=== PATIENT | female | born 2000 | race Caucasian/White ===

== ENCOUNTER 2024-04-07 15:37 | Emergency (ER) | payer BC, SELFPAY ==
[2024-04-07 15:44] VITALS: BP 122/80; PULSE 98; RESP 20; TEMP 36.6; O2SAT 97
--- NOTE | 2024-04-07 15:51 | ED.URI ---
HPI - URI/Sore Throat General Chief Complaint: Upper Respiratory Infection Stated Complaint: Cough Source: patient Mode of arrival: ambulatory Limitations: no limitations History of Present Illness HPI Narrative: 24-year-old female presented for complaint of cough for 8 days. States the cough is worse at night and is keeping her up. Cough is unrelieved with [id number] cough medicine. Denies shortness of breath, wheezing, nausea vomiting, fever lethargy. Related Data Home Medications Medication Instructions Recorded Confirmed norethindrone 1 mg-ethinyl 1 tablet PO DAILY 04/07/24 04/07/24 estradiol 10 mcg (24)-iron 10 mcg(2) tablet (Lo Loestrin Fe) Allergies Allergy/AdvReac Type Severity Reaction Status Date / Time No Known Allergies Allergy Verified 04/07/24 15:45 Review of Systems Review of Systems: CONSTITUTIONAL: Denies body aches, fever, chills, or sweats. EYES: Denies visual changes, redness, or discharge. ENT: Denies rhinorrhea, congestion, sore throat, or otalgia. CARDIOVASCULAR: Denies chest pain, palpitations, or edema. RESPIRATORY: Reports cough, denies sob, wheezing. GASTROINTESTINAL: Denies abdominal pain, nausea, vomiting, or diarrhea. SKIN: Denies rash, itching, or wounds. MUSCULOSKELETAL: Denies back pain, joint pain, or myalgia. NEUROLOGIC: Denies headache All systems reviewed & are unremarkable except as noted in HPI and below PMFSH Comments At time of signature, I have reviewed and agree with nursing past medical, surgical, social and family history unless otherwise noted. Please see nursing chart for further information. There is no relevant family history pertinent to the presenting complaint Exam Narrative: GENERAL: Well-appearing, in no acute distress. EYES: EOMI. No redness or drainage. Conjunctivae normal. ENT: Mucous membranes pink and moist. No rhinorrhea. TMs normal bilaterally. Throat normal. Uvula midline. NECK: Normal AROM. Supple. CHEST: No respiratory distress. lungs clear to all kay. HEART: Regular rate and rhythm. No murmur appreciated. ABDOMEN: Soft, nontender, nondistended, normal active bowel sounds. SKIN: Warm, dry, no rash. Capillary refill normal. Normal skin turgor. NEURO: Alert and oriented x3. Gait steady. PSYCH: Normal affect. Course Course Emergency Course: Patient is aware of diagnosis, understands and agrees to treatment plan. Anticipatory guidance given. Patient agrees to follow-up as directed and is aware of reasons to seek care at the emergency department. Portions of this record may have been created with voice recognition software Level of Care: Express Care Visit Vital Signs Vital signs: Vital Signs Temperature 97.8 F 04/07/24 15:44 Pulse Rate 98 04/07/24 15:44 Respiratory Rate 20 04/07/24 15:44 Blood Pressure 122/80 04/07/24 15:44 Pulse Oximetry 97 04/07/24 15:44 Oxygen Delivery Room Air 04/07/24 15:44 Temperature 97.8 F 04/07/24 15:44 Pulse Rate 98 04/07/24 15:44 Respiratory Rate 20 04/07/24 15:44 Blood Pressure 122/80 04/07/24 15:44 Pulse Oximetry 97 04/07/24 15:44 Oxygen Delivery Room Air 04/07/24 15:44 MDM - URI/Sore Throat MDM Narrative Medical decision making narrative: Discussed physical exam findings. Advised supportive measures and signs/symptoms to go to the ER. Pt is appropriate for outpt treatment and f/u. Differential Diagnosis Differential diagnosis: Likely upper respiratory infection, sinusitis, viral infection, bronchitis and other Discharge Plan Discharge Clinical Impression: Bronchitis Patient Disposition: Home, Self-Care Condition: Stable Instructions: Antibiotic Form, Acute Bronchitis (ED) Additional Instructions: Take medication as directed Recommend Flonase spray and Zyrtec (or Claritin/Olivia) If you have sinus congestion over the counter Cough syrup may cause drowsiness; avoid driving or take it at night ti
[2024-04-07 15:54] VITALS: BP 122/80; PULSE 98; RESP 20; TEMP 36.6; O2SAT 97
== END 2024-04-07 16:00 | disposition home or self-care (01) ==
PROVIDERS: Emergency Provider Nurse Practitioner Family
DX: J40 Bronchitis, not specified as acute or chronic (principal)
CPT/HCPCS: 99213; G0463

== ENCOUNTER 2024-11-18 16:29 | Emergency (ER) | payer OTHER, SELFPAY ==
--- NOTE | ~2024-11-18 | XR_ITS ---
EXAMINATION: XR tibia fibula LT 2V DATE: 11/18/2024 16:54 INDICATION: Left lower leg injury TECHNIQUE: Anteroposterior and lateral views of the left tibia and fibula were obtained on overlappin g proximal and distal images. COMPARISON: None. FINDINGS: Bone alignment is normal. No fracture. Joint space at the left knee, ankle and visualized mid and hin dfoot are normal. No left knee or ankle joint effusion. Mild soft tissue swelling anterior to the dis andrew lower leg and ankle. IMPRESSION: 1. No osseous abnormality. Reviewed, dictated and finalized at location A. IMPRESSION: 1. No osseous abnormality.
[2024-11-18 16:36] VITALS: BP 120/75; PULSE 106; RESP 18; TEMP 36.7; O2SAT 97
--- NOTE | 2024-11-18 17:17 | ED.LOWEXIN ---
HPI - Extremity Injury (Lower) General Chief Complaint: Extremity Injury, Lower Stated Complaint: Fall Injury/Left Ankle Related Data Home Medications ?Medication ?Instructions ?Recorded ?Confirmed ?Last Taken ?Type norethindrone 1 mg-ethinyl 1 tablet PO DAILY 04/07/24 04/07/24 Unknown History estradiol 10 mcg (24)-iron 10 mcg(2) tablet (Lo Loestrin Fe) Allergies Allergy/AdvReac Type Severity Reaction Status Date / Time No Known Allergies Allergy Verified 11/18/24 16:41 Course Course Level of Care: [facility] Care Visit ([id number]) Vital Signs Vital signs: Vital Signs Temperature 36.7 C 11/18/24 16:36 Pulse Rate 106 H 11/18/24 16:36 Respiratory Rate 18 11/18/24 16:36 Blood Pressure 120/75 11/18/24 16:36 Pulse Oximetry 97 11/18/24 16:36 Oxygen Delivery Room Air 11/18/24 16:36 Temperature 36.7 C 11/18/24 16:36 Pulse Rate 106 H 11/18/24 16:36 Respiratory Rate 18 11/18/24 16:36 Blood Pressure 120/75 11/18/24 16:36 Pulse Oximetry 97 11/18/24 16:36 Oxygen Delivery Room Air 11/18/24 16:36 Discharge Plan Discharge Clinical Impression: Ankle sprain and strain Patient Disposition: Home Condition: Stable Instructions: Antibiotic Form, Ankle Sprain (ED) Additional Instructions: REST, ICE, ELEVATE THEY ANKLE, WEAR A COMPRESSION SLEEVE OR STOCKING WE DISCUSSED. FOLLOW-UP WITH YOUR PRIMARY DOCTOR CONTACTED AND ORTHOPEDIC PROVIDER FOR FOLLOW-UP IN 1-2 WEEKS IF SYMPTOMS ARE NOT RESOLVING. Patient Language: Faroese Prescriptions: No Action Lo Loestrin Fe 1 mg-10 mcg (24)/10 mcg (2) tablet 1 tablet PO DAILY Follow-up/Referrals: PHYSICIAN NOT ON STAFF,NONSTAFF [Primary Care Provider] - Time of Disposition: :18
--- NOTE | 2024-11-18 17:18 | ED.LOWEXIN ---
HPI - Extremity Injury (Lower) General Chief Complaint: Extremity Injury, Lower Stated Complaint: Fall Injury/Left Ankle History of Present Illness HPI Narrative: She is 24-year-old female, presents to [facility] with left ankle pain it seems to radiate up her left landa with weight-bearing. Onset of symptoms 1 month ago after she fell, landing with her left knee flexed and her wake beneath her, hitting her landa bluntly to the ground. She has significant bruising following the incident hand abrasion to her left anterior ankle that seemed to be improving however over past week, being on her feet more, she has had some pain in the left anterior ankle that seems to radiate up her leg weight-bearing. Pain is described as burning at times. She has taken anti-inflammatories with some relief. She denies any additional injuries, she has no sensation of laxity in the left knee joint or ankle joint. She denies distal paresthesias. She is not . Related Data Home Medications ?Medication ?Instructions ?Recorded ?Confirmed ?Last Taken ?Type norethindrone 1 mg-ethinyl 1 tablet PO DAILY 04/07/24 04/07/24 Unknown History estradiol 10 mcg (24)-iron 10 mcg(2) tablet (Lo Loestrin Fe) Allergies Allergy/AdvReac Type Severity Reaction Status Date / Time No Known Allergies Allergy Verified 11/18/24 16:41 Review of Systems Musculoskeletal: Comments: Refer to HPI Exam Const: General: healthy appearing, no acute distress and alert Nutritional Appearance: well nourished Orientation/consciousness: patient oriented x3 Limitations: no limitations HENMT: Head: normal to inspection Ears: external ears normal Face/Nose/Sinus: Normal external nose present Face and sinus: normal facial exam Mouth: Yes Normal oral and palatal mucosa present Teeth and gingiva: dentition normal Throat: posterior oropharynx normal Eyes: Conjunctivae: conjunctivae normal Pupils: Equal, round and reactive pupils present EOM: EOMs intact bilaterally Direct Ophthalmoscopy: no photophobia Neck: Neck: normal visual inspection Chest: Chest palpation & inspection: normal inspection of the chest Resp: Effort & Inspection: normal respiratory effort Auscultation: clear to auscultation bilaterally Cardio: Rate: regular rate Rhythm: regular rhythm GI: GI Palp: Yes Soft to palpation Auscultation: normal bowel sounds : External Female Exam: normal external appearance Back/Spine/Pelvis: Back: no CVA tenderness Skin: General skin exam: normal color Rashes: no rashes Wounds: no wounds Neuro: General: patient oriented x3, moves all extremities, no meningeal signs, no focal motor deficits and CN's II-XI intact bilaterally Cranial nerves: Yes Nystagmus not present Speech: normal speech Gait exam (Neuro): Normal gait present Extrem: General: no clubbing, cyanosis or edema Other: patient has mild swelling to the left ankle as compared with the contralateral ankle, no deformity. Mild tenderness to palpation noted over the left anterior landa. The proximal tib-fib is not tender to palpation however she does report pain in this area with weight-bearing. No tenderness to palpation along the lateral medial joint line, no laxity noted with valgus or varus inversion, distal PMS intact Psych: Mental Status: mental status grossly normal Affect: normal affect Attitude: cooperative Course Course Emergency Course: tib-fib plain film unremarkable. Suspect patient has a sprain strain, will treat conservatively, compression stocking is encouraged, PCP follow-up for orthopedic referral or directly contacting Ortho if her insurance does not require referral from PCP if pain does not improve in 1 week. Patient agreeable with plan. Level of Care: Express Care Visit ([id number]) Vital Signs Vital signs: Vital Signs Temperature 36.7 C 11/18/24 16:36 Pulse Rate 106 H 11/18/24 16:36 Respiratory Rate 18 11/18/24 16:36 Blood Pressure 120/75 11/18/24 16:36 Pulse Oximetry 97 11/18/24 16:36 Oxygen Delivery Room Air 11/18/24 16:36 Temperature 36.7 C 11/18/24 16:36 Pulse Rate 106 H 11/18/24 16:36 Respiratory Rate 18 11/18/24 16:36 Blood Pressure 120/75 11/18/24 16:36 Pulse Oximetry 97 11/18/24 16:36 Oxygen Delivery Room Air 11/18/24 16:36 MDM - Extremity Injury (Lower) MDM Narrative Medical decision making narrative: Negative plain film. Plan to treat supportively, RICE, compression stocking when seated dependently, FU with PCP in 1 week if symptoms are not improving, sooner if pain increases, calf pain or swelling arise or with any further healing concerns Differential Diagnosis Differential diagnosis: Likely ankle sprain and strain, acute internal derangement of knee and ankle fracture Discharge Plan Discharge Clinical Impression: Ankle sprain and strain Patient Disposition: Home Condition: Stable Instructions: Antibiotic Form, Ankle Sprain (ED) Additional Instructions: REST, ICE, ELEVATE THEY ANKLE, WEAR A COMPRESSION SLEEVE OR STOCKING WE DISCUSSED. FOLLOW-UP WITH YOUR PRIMARY DOCTOR CONTACTED AND ORTHOPEDIC PROVIDER FOR FOLLOW-UP IN 1-2 WEEKS IF SYMPTOMS ARE NOT RESOLVING. Patient Language: South Korean Prescriptions: No Action Lo Loestrin Fe 1 mg-10 mcg (24)/10 mcg (2) tablet 1 tablet PO DAILY Follow-up/Referrals: PHYSICIAN NOT ON STAFF,NONSTAFF [Primary Care Provider] - Time of Disposition: 17:18
--- OUTSIDE RECORDS SUMMARY | 2024-11-18 18:11 | XMS_ITS | Clinical Summary ---
Author Organization [facility] A Address [address] [place] [id number] Care Team Providers Care Manager Truck Name Role Phone Ayde Modi MD Primary Care Provider [phone] Allergies No known active allergies Medications benzonatate (TESSALON) 100 mg capsuleIndicati ons:Cough Take 1 capsule (100 mg total) by mouth 3 (three) times a day as needed for cough 42 capsule 08/29/2024 Active Active Problems Problem Noted Date Diagnosed Date Bronchitis 08/29/2024 Assessment & Plan (08/29/2024 4:52 PM [employer]): Bronchitis 3 months ago with lingering cough, will send tessalon pearls in and advised on other supportive care Impaired swallowing 07/08/2014 Migraine headache 04/30/2013 Encounters Date Type Department Care Team Description 08/29/2024 4:00 PM [employer] Office Visit [facility] at [address] [place] [address] Ayde Modi MD Bronchitis (Primary Dx) from Last 3 Months Immunizations Immunization Administration Dates Next Due DTaP 04/15/2004, 0,1999,08/05,1999 HPV, Quadrivalent 11/07/2016 Hep A, Pediatric 06/03/2014,05/14/2013 Hep B, Adolescent or Pediatric 1999,1999,1999 Hib (HbOC) 07/14/2000,1999,1999 IPV 04/15/2004 Influenza, Quadrivalent, Spl it, Preservative Free, Intramuscular 07/13/2015 Influenza, Trivalent, Preser vative Free, Intramuscular 05/14/2013 Influenza, Unspecified 08/29/2024(Deferred: Denise ent Refused) MMR 04/15/2004,04/19/2000 Meningococcal Conjugate (Menveo) 05/14/2013 Meningococcal MCV4P (Menactra) 07/13/2015 OPV 07/14/2000,1999,1999 Pneumococcal Conjugate 7-Valent 11/28/2000 Tdap 05/14/2013 Varicella 05/14/2013,04/19/2000 Surgical History Surgery Date Site/Laterality Comments WISDOM TOOTH EXTRACTION Medical History Medical History Date Comments Asthma Family History Medical History Relation Name Comments Heart disease Maternal Grandfather Cancer Other Family history of malignant neoplasm - (Added by TW Conv) Cancer Paternal Grandmother Relation Name Status Comments Maternal Grandfather Other Paternal Grandmother Social History Tobacco Use Types Packs/Day Years Used Date Smoking Tobacco: Never AUDIT-C Answer Date Recorded Q1: How often do you have a drink containing alcohol? Never 08/29/2024 Q2: How many drinks containi ng alcohol do you have on a typical day when you are drinking? Patient does not drink Q3: How often do you have si x or more drinks on one occasion? Never 08/29/2024 PHQ-2 Answer Date Recorded PHQ-2 Total Score (If total score is 3 or more points, staff should administer the PHQ-9) 0 08/29/2024 Comments Unknown Sex and Gender Information Value Date Recorded Sex Assigned at Not on file Legal Sex Female 3:26 PM [employer] Gender Identity Female 08/28/2024 8:34 PM [employer] Sexual Orientation Not on file Obstetrics History Last Filed Vital Signs Vital Sign Reading Time Taken Comments Blood Pressure 104/80 08/29/2024 4:16 PM [employer] Pulse 109 08/29/2024 4:16 PM [employer] Temperature 36.9 C (98.4 F) 08/29/2024 4:16 PM [employer] Respiratory Rate - - Oxygen Saturation 97% 08/29/2024 4:16 PM [employer] Inhaled Oxygen Concentration - - Weight 91.6 kg (202 lb) 08/29/2024 4:16 PM [employer] Height 166.4 cm (5' 5.5 ) 08/29/2024 4:16 PM [employer] Body Mass Index 33.1 08/29/2024 4:16 PM [employer] Plan of Treatment Health Maintenance Due Date Last Done Comments Cervical Cancer Screening 1999 Hepatitis C Screening 1999 HPV Vaccines (2 - 3-dose series) 12/05/2016 11/07/2016 Regular Well Visit/Exam 18-64 2017 DTaP/Tdap/Td Vaccine (7 - Td or Tdap) 05/14/2023 05/14/2013, 04/15/2004, 07/14/2000, Additional history exists Covid-19 Vaccine ( season) 2024 02/24/2021, 10/11/2020 Influenza Vaccine (Season Ended) 2025 07/13/2015, 05/14/2013 Depression Screening 08/29/2025 08/29/2024 Hepatitis B Screening Completed 1999 , 1999, 1999 Pneumococcal vaccine <65 Aged Out 11/28/2000 No longer eligible based on patient's age to complete this topic Varicella Vaccines Completed 05/14/2013, 04/19/2000 Insurance [facility] CHO[employer] PL[employer] Care Teams Manager Truck Relationship Specialty Start Date End Date Ayde Modi MD PCP - General Family Medicine 08/29/24
--- OUTSIDE RECORDS SUMMARY | 2024-11-18 18:11 | XMS_ITS | Referral Summary ---
Author Organization [facility] A Address [address] [place] [id number] Care Team Providers Care Health Management Consultant Name Role Phone Ayde Modi MD Primary Care Provider Encounters Date Type Department Care Team Description 08/29/2024 4:00 PM CONTENT SPECIALIST Office Visit [facility] at [address] [place] [address] Ayde Modi MD Bronchitis (Primary Dx) from Last 3 Months Allergies No known active allergies Medications benzonatate (TESSALON) 100 mg capsuleIndicati ons:Cough Take 1 capsule (100 mg total) by mouth 3 (three) times a day as needed for cough 42 capsule 08/29/2024 Active Active Problems Problem Noted Date Diagnosed Date Bronchitis 08/29/2024 Assessment & Plan (08/29/2024 4:52 PM CONTENT SPECIALIST): Bronchitis 3 months ago with lingering cough, will send tessalon pearls in and advised on other supportive care Impaired swallowing 07/08/2014 Migraine headache 04/30/2013 Immunizations Immunization Administration Dates Next Due DTaP [...] Conjugate 7-Valent 11/28/2000 Tdap 05/14/2013 Varicella 05/14/2013,04/19/2000 Social History Tobacco Use Types Packs/Day Years [...] on file Legal Sex Female 3:26 PM CONTENT SPECIALIST Gender Identity Female 08/28/2024 8:34 PM CONTENT SPECIALIST Sexual Orientation Not on file Last Filed Vital Signs Vital Sign Reading Time Taken Comments Blood Pressure 104/80 08/29/2024 4:16 PM CONTENT SPECIALIST Pulse 109 08/29/2024 4:16 PM CONTENT SPECIALIST Temperature 36.9 C (98.4 F) 08/29/2024 4:16 PM CONTENT SPECIALIST Respiratory Rate - - Oxygen Saturation 97% 08/29/2024 4:16 PM CONTENT SPECIALIST Inhaled Oxygen Concentration - - Weight 91.6 kg (202 lb) 08/29/2024 4:16 PM CONTENT SPECIALIST Height 166.4 cm (5' 5.5 ) 08/29/2024 4:16 PM CONTENT SPECIALIST Body Mass Index 33.1 08/29/2024 4:16 PM CONTENT SPECIALIST Plan of Treatment Not on file Insurance [facility] CHOICE PLUS Care Teams Health Management Consultant Relationship Specialty Start Date End Date Ayde Modi MD PCP - General Family Medicine 08/29/24
== END 2024-11-18 17:20 | disposition home or self-care (01) ==
PROVIDERS: Emergency Provider Nurse Practitioner Family
DX: S93.402A Sprain of unspecified ligament of left ankle, initial encounter (principal); S96.912A Strain of unspecified muscle and tendon at ankle and foot level, left foot, initial encounter; W19.XXXA Unspecified fall, initial encounter
CPT/HCPCS: 73590; 99213; G0463